=== PATIENT | female | born 2005 | race Caucasian/White ===

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

== ENCOUNTER → 2023-03-08 | Outpatient (REF) | payer OTHER ==
[2023-03-08 14:00] LABS: C REACTIVE PROTEIN QUANTITATIV 3.1 MG/DL (<1.0)
[2023-03-08 14:02] LABS: THYROID STIMULATING HORMONE 1.506 uIU/ML (0.48-4.17); THYROXINE (T4) 7.5 UG/DL (5.5-11.1)
[2023-03-08 14:03] LABS: FOLATE 10.9 NG/ML (>5.4); FREE THYROXINE INDEX 2.3 % (1.3-4.8)
[2023-03-08 14:09] LABS: HEMOGLOBIN A1c 4.7 % (4.0-6.0)
== END ==
LOC: M LAB REF 12:31
PROVIDERS: ATTEND Nurse Practitioner Family
DX: F43.22 Adjustment disorder with anxiety (principal); R51.9 Headache, unspecified; R00.2 Palpitations; R07.89 Other chest pain

== ENCOUNTER → 2023-03-13 | Outpatient (CLI) | payer OTHER | LOC: M EKG 14:51 | PROVIDERS: ATTEND Nurse Practitioner Family | DX: Z82.49 Family history of ischemic heart disease and other diseases of the circulatory system (principal) ==